=== PATIENT | male | born 1960 | race African-American/Black ===

== ENCOUNTER 2022-02-04 12:41 | Inpatient (IN) | payer OTHER ==
[2022-02-01 12:20] LABS: BASOPHILS # (AUTO) 0.1 (0.0-0.1); BASOPHILS % 0.6 % (0.0-1.0); EOSINOPHILS # (AUTO) 0.1 (0.0-0.4); EOSINOPHILS % 1.1 % (0.0-6.0); HEMATOCRIT 39.7 % (38.2-49.6); HEMOGLOBIN 12.2 g/dL (14.0-18.0); LYMPHOCYTES # (AUTO) 2.6 (1.0-3.2); LYMPHOCYTES % 30.2 % (18.0-39.1); MEAN CORPUSCULAR HEMOGLOBIN 21.5 pg (28-32); MEAN CORPUSCULAR HGB CONC 30.7 g/dL (31-35); MEAN CORPUSCULAR VOLUME 69.9 fL (81-99); MONOCYTES # (AUTO) 0.8 (0.2-0.8); MONOCYTES % 9.7 % (4.4-11.3); NEUTROPHILS # (AUTO) 4.9 (2.1-6.9); NEUTROPHILS % 58.3 % (38.7-80.0); PLATELET COUNT 298 x10e3/uL (140-360); RED BLOOD COUNT 5.68 x10e6/uL (4.3-5.7); RED CELL DISTRIBUTION WIDTH 17.2 % (11.7-14.4)
[2022-02-01 12:50] LABS: ALBUMIN 3.9 g/dL (3.5-5.0); ANION GAP 11.6 mmol/L (8-16); CALCIUM 9.4 mg/dL (8.4-10.2); CREATININE, SERUM 1.22 mg/dL (0.72-1.25); POTASSIUM 3.6 mmol/L (3.5-5.1)
[~2022-02-04] VITALS: Ht 165.1 cm; Wt 81.6 kg
[~2022-02-04 12:41] MED LIST: ASPIRIN81 MG PO; AZOR PO; CARVEDILOL12.5 MG PO; CLONIDINE PO; HYDRALAZINE HCL50 MG PO; LEVAQUIN500 MG PO; NORVASC5 MG PO; TYLENOL WITH C1 EACH PO; VALSARTAN-HCTZ1 EAC4 PO
[2022-02-04] MEDS ORDERED: GENTAMICIN 80MG/NS 100 ML 200 ML IV ONE (13:00)
[2022-02-04] MEDS ORDERED: Clindamycin INJ 300 MG/50 ML 50 ML IV ONE (13:00)
[2022-02-04] MEDS ORDERED: PIPERACILLIN/TAZOBACTAM 3.375 GM VIAL ONE (13:00)
[2022-02-04] MEDS ORDERED: PROPOFOL IV EMULSION 10 MG/ML 20 ML VIAL ONE (13:01)
[2022-02-04] MEDS ORDERED: POVIDONE IODINE 0.05% 0.05 % ML PO ONE (13:01)
[2022-02-04] MEDS ORDERED: SEVOFLURANE INHAL SOLN 250 ML PEN BTL ONE (13:01)
[2022-02-04] MEDS ORDERED: ONDANSETRON HCL INJ 2MG/ML 2ML 2 MG/ML VIAL ONE (13:01)
[2022-02-04] MEDS ORDERED: LIDOCAINE HCL 2% LOCAL INJ 5 ML SDV VIAL INJ ONE (13:01)
[2022-02-04] MEDS ORDERED: KETOROLAC TROMETHAMINE 30 MG/ML VIAL ONE (13:01)
[2022-02-04] MEDS ORDERED: DEXAMETHASONE SOD PHOS INJ 4 MG/ML SDV ONE (13:01)
[2022-02-04] MEDS ORDERED: FENTANYL CITRATE/PF 100MCG/2 ML INJ ONE (13:07)
[2022-02-04] MEDS ORDERED: MIDAZOLAM HCL 2 MG/2 ML VIAL ONE (13:07)
[2022-02-04] MEDS ORDERED: SODIUM CHLORIDE 0.9% 500ML 500 ML ONE (14:25)
[2022-02-04] MEDS ORDERED: GENTAMICIN SULFATE 40 MG/ML 2 ML VIAL ONE (14:25)
[2022-02-04] MEDS ORDERED: MUPIROCIN 2% OINT 22 GM TUBE ONE (14:26)
[2022-02-04] MEDS ORDERED: Vancomycin IV 1,000 MG ONE (14:26)
[2022-02-04] MEDS ORDERED: BACITRACIN ZINC 15 GM OINT ONE (14:30)
[2022-02-04] MEDS ORDERED: ONDANSETRON HCL INJ 2MG/ML 2ML 2 MG/ML VIAL IV PRN (17:15)
[2022-02-04] MEDS ORDERED: TRAMADOL HCL 50 MG TAB PO PRN (17:15)
[2022-02-04] MEDS ORDERED: MORPHINE SULFATE 1 MG/ML 30ML PCA IV PRN (17:15)
[2022-02-04] MEDS ORDERED: NALOXONE HCL INJ 0.4 MG/ML AMP IV PRN (17:15)
[2022-02-04] MEDS ORDERED: ACETAMINOPHEN 1000 MG/100 ML IV PRN (17:15)
[2022-02-04] MEDS ORDERED: DIPHENHYDRAMINE HCL 25 MG CAP PO PRN (17:15)
[2022-02-04] MEDS ORDERED: MEPERIDINE HCL INJ 25 MG/ML VIAL ONE (17:35)
[2022-02-04 17:40] LABS: BASOPHILS % 0.4 % (0.0-1.0); EOSINOPHILS % 0.4 % (0.0-6.0); HEMATOCRIT 40.6 % (38.2-49.6); HEMOGLOBIN 12.3 g/dL (14.0-18.0); LYMPHOCYTES # (AUTO) 2.1 (1.0-3.2); LYMPHOCYTES % 19.4 % (18.0-39.1); MEAN CORPUSCULAR HEMOGLOBIN 21.4 pg (28-32); MEAN CORPUSCULAR HGB CONC 30.3 g/dL (31-35); MEAN CORPUSCULAR VOLUME 70.6 fL (81-99); MONOCYTES # (AUTO) 0.3 (0.2-0.8); MONOCYTES % 3.1 % (4.4-11.3); NEUTROPHILS # (AUTO) 8.4 (2.1-6.9); NEUTROPHILS % 76.2 % (38.7-80.0); PLATELET COUNT 309 x10e3/uL (140-360); RED BLOOD COUNT 5.75 x10e6/uL (4.3-5.7); RED CELL DISTRIBUTION WIDTH 17.1 % (11.7-14.4)
[2022-02-04 17:51] LABS: ANION GAP 11.3 mmol/L (8-16); CALCIUM 9.2 mg/dL (8.4-10.2); CREATININE, SERUM 1.51 mg/dL (0.72-1.25); POTASSIUM 4.3 mmol/L (3.5-5.1)
[2022-02-04 20:00] VITALS: BP 134/69
[2022-02-04 20:23] VITALS: BP 142/87
[2022-02-04 20:43] VITALS: BP 134/69
[2022-02-04] MEDS: D5.45%NS/KCL 20MEQ 1,000 ML IV SCH (20:55)
[2022-02-04] MEDS: PIPERACILLIN/TAZOBACTAM 3.375 GM in SODIUM CHLORIDE 0.9% 50ML 50 ML IV SCH (22:21)
[2022-02-04] MEDS: MELATONIN 5 MG TABLET PO PRN (22:22)
[2022-02-05] VITALS (8 sets, daily range): BP systolic 124–167; BP diastolic 67–88
[2022-02-05] MEDS: D5.45%NS/KCL 20MEQ 1,000 ML IV SCH ×2 (00:33→08:38)
[2022-02-05] MEDS: PIPERACILLIN/TAZOBACTAM 3.375 GM in SODIUM CHLORIDE 0.9% 50ML 50 ML IV SCH ×4 (02:51→20:55)
[2022-02-05 05:03] LABS: BASOPHILS % 0.1 % (0.0-1.0); HEMATOCRIT 37.3 % (38.2-49.6); HEMOGLOBIN 11.7 g/dL (14.0-18.0); LYMPHOCYTES # (AUTO) 1.5 (1.0-3.2); LYMPHOCYTES % 10.3 % (18.0-39.1); MEAN CORPUSCULAR HEMOGLOBIN 21.7 pg (28-32); MEAN CORPUSCULAR HGB CONC 31.4 g/dL (31-35); MEAN CORPUSCULAR VOLUME 69.3 fL (81-99); MONOCYTES # (AUTO) 0.6 (0.2-0.8); MONOCYTES % 4.2 % (4.4-11.3); NEUTROPHILS # (AUTO) 12.2 (2.1-6.9); NEUTROPHILS % 85.1 % (38.7-80.0); PLATELET COUNT 299 x10e3/uL (140-360); RED BLOOD COUNT 5.38 x10e6/uL (4.3-5.7); RED CELL DISTRIBUTION WIDTH 16.4 % (11.7-14.4)
[2022-02-05 05:36] LABS: ANION GAP 11.6 mmol/L (8-16); CALCIUM 8.9 mg/dL (8.4-10.2); CREATININE, SERUM 1.37 mg/dL (0.72-1.25); POTASSIUM 4.6 mmol/L (3.5-5.1)
[2022-02-05] MEDS: DOCUSATE SODIUM 100 MG CAP PO SCH ×2 (08:37→16:33)
[2022-02-05] MEDS: CARVEDILOL 12.5 MG TAB PO SCH ×2 (08:42→16:34)
[2022-02-05] MEDS: AMLODIPINE BESYLATE 5 MG TAB PO SCH (08:43)
[2022-02-05] MEDS: VALSARTAN 160 MG TAB PO SCH (08:43)
[2022-02-05] MEDS ORDERED: HYDROCHLOROTHIAZIDE 25 MG TAB PO SCH (09:00)
[2022-02-05] MEDS ORDERED: HYDRALAZINE HCL 20 MG/ML VIAL IV PRN (09:00)
[2022-02-05] MEDS: ACETAMINOPHEN/CODEINE 300MG - 30MG TAB PO PRN ×3 (10:01→20:55)
[2022-02-05] MEDS: DEXTROSE 5%/0.45% SOD CHL 1,000 ML IV SCH ×2 (10:30→19:31)
[2022-02-05] MEDS: MELATONIN 5 MG TABLET PO PRN (20:55)
[2022-02-05] MEDS ORDERED: HYDRALAZINE HCL 25 MG TAB PO SCH (21:00)
[2022-02-06] VITALS: BP 123/64
[2022-02-06] MEDS: PIPERACILLIN/TAZOBACTAM 3.375 GM in SODIUM CHLORIDE 0.9% 50ML 50 ML IV SCH ×2 (03:33→08:26)
[2022-02-06 04:00] VITALS: BP 138/63
[2022-02-06] MEDS: DEXTROSE 5%/0.45% SOD CHL 1,000 ML IV SCH (04:42)
[2022-02-06 04:59] LABS: BASOPHILS # (AUTO) 0.1 (0.0-0.1); BASOPHILS % 0.4 % (0.0-1.0); EOSINOPHILS # (AUTO) 0.1 (0.0-0.4); EOSINOPHILS % 0.5 % (0.0-6.0); HEMATOCRIT 33.9 % (38.2-49.6); HEMOGLOBIN 10.4 g/dL (14.0-18.0); LYMPHOCYTES # (AUTO) 2.5 (1.0-3.2); LYMPHOCYTES % 20.9 % (18.0-39.1); MEAN CORPUSCULAR HEMOGLOBIN 21.5 pg (28-32); MEAN CORPUSCULAR HGB CONC 30.7 g/dL (31-35); MONOCYTES # (AUTO) 1.1 (0.2-0.8); MONOCYTES % 8.8 % (4.4-11.3); NEUTROPHILS # (AUTO) 8.4 (2.1-6.9); NEUTROPHILS % 68.9 % (38.7-80.0); PLATELET COUNT 274 x10e3/uL (140-360); RED BLOOD COUNT 4.84 x10e6/uL (4.3-5.7); RED CELL DISTRIBUTION WIDTH 16.3 % (11.7-14.4)
[2022-02-06 05:14] LABS: ANION GAP 9.5 mmol/L (8-16); CALCIUM 8.7 mg/dL (8.4-10.2); CREATININE, SERUM 1.25 mg/dL (0.72-1.25); POTASSIUM 3.5 mmol/L (3.5-5.1)
[2022-02-06 07:42] VITALS: BP 134/80
[2022-02-06] MEDS: DOCUSATE SODIUM 100 MG CAP PO SCH (08:26)
[2022-02-06] MEDS: VALSARTAN 160 MG TAB PO SCH (08:27)
[2022-02-06] MEDS: AMLODIPINE BESYLATE 5 MG TAB PO SCH (08:27)
[2022-02-06] MEDS: CARVEDILOL 12.5 MG TAB PO SCH (08:27)
[2022-02-06 08:28] VITALS: BP 134/80
[2022-02-06] MEDS: ACETAMINOPHEN/CODEINE 300MG - 30MG TAB PO PRN (08:37)
[2022-02-06] MEDS ORDERED: ONDANSETRON HCL 4 MG ORAL DISINTEGRATING TAB PO PRN (09:00)
[2022-02-06 11:01] VITALS: BP 138/77
== END 2022-02-06 12:29 | disposition home or self-care (01) | DRG 674 ==
LOC: OR 12:41 → PACU V 17:18 → MED/SURG 17:58
PROVIDERS: ADMIT Internal Medicine; ATTEND Internal Medicine
PROC: 0VPS0JZ Removal of Synthetic Substitute from Penis, Open Approach (ICD-10-PCS; 2022-02-04)
PROC: 0TJB8ZZ Inspection of Bladder, Via Natural or Artificial Opening Endoscopic (ICD-10-PCS; 2022-02-04)
PROC: 0VUS0JZ Supplement Penis with Synthetic Substitute, Open Approach (ICD-10-PCS; principal; 2022-02-04 14:00)
DX: T83.490A Other mechanical complication of implanted penile prosthesis, initial encounter (principal); N17.9 Acute kidney failure, unspecified; I10 Essential (primary) hypertension; K21.9 Gastro-esophageal reflux disease without esophagitis; N52.9 Male erectile dysfunction, unspecified; B19.20 Unspecified viral hepatitis C without hepatic coma; N40.1 Benign prostatic hyperplasia with lower urinary tract symptoms; R39.14 Feeling of incomplete bladder emptying; R39.16 Straining to void; R35.1 Nocturia; E66.9 Obesity, unspecified; Z68.30 Body mass index [BMI] 30.0-30.9, adult; D72.829 Elevated white blood cell count, unspecified; Z20.822 Contact with and (suspected) exposure to COVID-19
CPT/HCPCS: 36415; 80048; 80053; 83735; 85025; 88300; 93005; 94799; 96361; J1100; J1580; J1885; J2001; J2175; J2250; J2270; J2405; J2543; J3010; J3370; J7040; U0002